=== PATIENT | female | born 1960 | race Caucasian/White ===

== ENCOUNTER → 2017-10-04 11:00 | Outpatient (CLI) | payer OTHER, SELFPAY ==
[2017-10-04 13:57] LABS: Free T4 (Free Thyroxine) 0.95 ng/dl (0.76-1.46); Thyroid Stimulating Hormone 5.76 uIU/ml (0.358-3.740)
== END ==
PROVIDERS: Visit Provider Emergency Medicine
DX: R68.89 Other general symptoms and signs (principal)
CPT/HCPCS: 84439; 84443

== ENCOUNTER → 2018-06-18 13:43 | Outpatient (CLI) | payer OTHER, SELFPAY ==
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
--- NOTE | 2018-06-18 13:48 | XR_ITS ---
XR chest 2V HISTORY: ITS.REASON: chest pain ORDERING PHYSICIAN: Thor Becerra MD PATIENT AGE: 57 years COMPARISON: None FINDINGS: The cardiac size is upper limits of normal. No evidence of CHF. Patchy density is present in the right middle lobe suggesting an area of atelectasis or infiltrate. The remaining lungs are clear. No acute bony anomalies. No effusions. IMPRESSION: Right middle lobe infiltrate versus atelectasis
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
== END ==
PROVIDERS: PCP Emergency Medicine; Visit Provider Emergency Medicine
DX: R07.9 Chest pain, unspecified (principal); M54.9 Dorsalgia, unspecified; R51 Headache; R93.0 Abnormal findings on diagnostic imaging of skull and head, not elsewhere classified; V89.2XXA Person injured in unspecified motor-vehicle accident, traffic, initial encounter
CPT/HCPCS: 70450; 71046; 72125

== ENCOUNTER → 2018-06-25 10:44 | Outpatient (CLI) | payer OTHER, SELFPAY ==
[2018-06-25 11:06] LABS: Anion Gap 12.3 mEq/L (5-15); Blood Urea Nitrogen 14 mg/dL (7-18); Calcium 8.8 mg/dL (8.5-10.1); Carbon Dioxide 29 mmol/L (21.0-32.0); Chloride 100 mmol/L (98-107); Creatinine,Serum 0.74 mg/dL (0.55-1.02); Estimated Glomerular Filt Rate 81 ml/min (>60); GFR (African American) 98 ML/MIN (>60); Glucose 95 mg/dL (74-106); Potassium 4.3 mmoL/L (3.5-5.1); Sodium 137 mmol/L (136-145)
--- NOTE | 2018-06-25 11:21 | CT_ITS ---
CT angio head INDICATION: Headache, follow up abnormal unenhanced CT head. ITS.REASON: r/o basilar tip aneurysm ORDERING PHYSICIAN: Thor Becerra MD PATIENT AGE: 57 years COMPARISON: None TECHNIQUE: Axial images are obtained following the intravenous administration of 100 mL of Isovue-370 contrast. Sagittal and coronal reformatted images are reviewed as well. All CT scans at the facility use one or more dose reduction, viz: automated exposure control, ma/kV adjustment per patient size (including targeted exams where dose is matched to indication, i.e. head), or iterative reconstruction technique. FINDINGS: There is tortuosity of the basilar artery with mild ectasia of the distal aspect of the basilar artery just proximal to the bifurcation. An aneurysm however is not demonstrated. [place] of [place] has an unremarkable appearance. No aneurysm, AVM, or major intracranial occlusive process is evident. No enhancing lesions are apparent IMPRESSION: No evidence of basilar tip aneurysm. The abnormality noted on the unenhanced exam is a result of mild ectasia and tortuosity of the distal aspect of the basilar artery.
== END ==
PROVIDERS: Visit Provider Emergency Medicine
DX: Z01.818 Encounter for other preprocedural examination (principal); R93.0 Abnormal findings on diagnostic imaging of skull and head, not elsewhere classified; V89.2XXA Person injured in unspecified motor-vehicle accident, traffic, initial encounter
CPT/HCPCS: 36415; 70496; 80048; Q9967

== ENCOUNTER → 2018-07-04 09:24 | Outpatient (CLI) | payer OTHER, SELFPAY ==
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
== END ==
PROVIDERS: PCP Emergency Medicine; Visit Provider Emergency Medicine
DX: M48.02 Spinal stenosis, cervical region (principal); M50.30 Other cervical disc degeneration, unspecified cervical region; V89.2XXA Person injured in unspecified motor-vehicle accident, traffic, initial encounter
CPT/HCPCS: 72141; 76376

== ENCOUNTER → 2019-09-29 13:54 | Outpatient (CLI) | payer MEDICAID, SELFPAY ==
[2019-09-29 14:17] LABS: Basophils # 0.1 K/mm3 (0-0.2); Basophils % 0.8 % (0.1-2.0); Eosinophils # 0.6 K/mm3 (0.0-0.4); Eosinophils % 9.1 % (0.1-12.0); Hematocrit 39.6 % (37.0-47.0); Hemoglobin 12.6 g/dL (12.2-16.2); Lymphocytes # 1.7 K/mm3 (0.7-4.5); Lymphocytes % 26.1 % (10-50); Mean Corpuscular HGB Conc 31.9 g/dL (31.8-35.4); Mean Corpuscular Hemoglobin 30.5 pg (27.0-31.2); Mean Corpuscular Volume 95.6 fl (81-99); Mean Platelet Volume 8.7 fl (7.4-10.4); Monocytes # 0.5 K/mm3 (0.1-1.0); Monocytes % 7.3 % (1.7-9.3); Neutrophils # 3.7 K/mm3 (1.8-7.8); Neutrophils % 56.6 % (37.0-80.0); Platelet Count 238 K/mm3 (142-424); Red Blood Count 4.14 M/mm3 (4.20-5.40); White Blood Count 6.4 K/mm3 (4.8-10.8)
[2019-09-29 14:21] LABS: Alanine Aminotransferase 19 U/L (12-78); Albumin/Globulin Ratio 1.2 (1.1-1.8); Alkaline Phosphatase 96 U/L (38-126); Anion Gap 13.8 mEq/L (5-15); Aspartate Amino Transferase 32 U/L (14-36); Blood Urea Nitrogen 22 mg/dl (7-17); Calcium 9.7 mg/dl (8.4-10.2); Carbon Dioxide 29 mmol/L (22.0-30.0); Chloride 101 mmol/L (98-107); Chol/HDL Ratio 2.4 (1-3.5); Cholesterol 191 mg/dl (140-200); Estimated Glomerular Filt Rate 74 ml/min (>60); GFR (African American) 89 ML/MIN (>60); Globulin 3.3 g/dL (1.3-3.2); Glucose 97 mg/dl (74-100); HDL Cholesterol 79 mg/dl (40-60); Potassium 4.8 mmoL/L (3.5-5.1); Sodium 139 mmol/L (136-145); Total Protein,Serum 7.3 g/dl (6.3-8.2); Triglycerides 53 mg/dl (30-150); VLDL Cholesterol 11 mg/dL (0-40)
[2019-09-29 14:29] LABS: Bilirubin,Total 0.1 mg/dl (0.2-1.3)
[2019-09-29 14:33] LABS: Direct LDL Cholesterol 90.29 mg/dL (100-129)
[2019-09-29 14:53] LABS: Thyroid Stimulating Hormone 3.62 uIU/mL (0.465-4.68)
[2019-09-30 16:10] LABS: Vitamin D 25 Hydroxy 34.7 ng/mL (30.0-100.0)
== END ==
PROVIDERS: Visit Provider Emergency Medicine
DX: M48.02 Spinal stenosis, cervical region (principal); E03.9 Hypothyroidism, unspecified; F41.9 Anxiety disorder, unspecified; Z72.0 Tobacco use
CPT/HCPCS: 80053; 80061; 82652; 84436; 84443; 85025

== ENCOUNTER → 2019-10-07 10:08 | Outpatient (CLI) | payer MEDICAID, SELFPAY | PROVIDERS: PCP Emergency Medicine; Visit Provider Emergency Medicine | DX: R06.02 Shortness of breath (principal) | CPT/HCPCS: 94060; 94726; 94729 ==

== ENCOUNTER → 2019-12-11 08:57 | Outpatient (CLI) | payer MEDICAID, SELFPAY ==
--- NOTE | 2019-12-11 09:12 | XR_ITS ---
PROCEDURE: XR HIP LT 2-3V W/PELVIS CLINICAL INDICATION: hip pain Left hip pain COMPARISON: XR HIP RT 2-3V W/PELVIS from 12/11/2019 FINDINGS: No fracture or dislocation is evident. No significant degenerative change. No lytic or blastic change. Unremarkable soft tissues. Incidental note made of small rounded area of calcification superior to the greater trochanter IMPRESSION: No acute findings. Dictated by: Timur Guallpa MD 12/11/2019 14:23 Electronically signed by Timur Guallpa MD in [place] 12/11/2019 14:23
--- NOTE | 2019-12-11 09:12 | XR_ITS ---
PROCEDURE: XR HIP RT 2-3V W/PELVIS CLINICAL INDICATION: hip pain COMPARISON: No exams were available for comparison FINDINGS: No fracture or dislocation is evident. No significant degenerative change. No lytic or blastic change. Unremarkable soft tissues. IMPRESSION: No acute findings. Dictated by: Timur Guallpa MD 12/11/2019 14:24 Electronically signed by Timur Guallpa MD in [place] 12/11/2019 14:24
== END ==
PROVIDERS: PCP Emergency Medicine; Visit Provider Emergency Medicine
DX: M25.552 Pain in left hip (principal); M25.551 Pain in right hip
CPT/HCPCS: 73502

== ENCOUNTER → 2019-12-16 15:12 | Outpatient (CLI) | payer MEDICAID, SELFPAY ==
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
== END ==
PROVIDERS: PCP Emergency Medicine; Visit Provider Emergency Medicine
DX: M54.9 Dorsalgia, unspecified (principal); M54.5 Low back pain
CPT/HCPCS: 72148; 76376

== ENCOUNTER → 2020-05-25 17:15 | Outpatient (CLI) | payer MEDICAID, SELFPAY ==
--- NOTE | 2020-05-25 17:16 | MM_ITS ---
PROCEDURE: MM DIG SCREENING MAMM BI W/CAD Digital Breast Tomosynthesis Included CLINICAL INDICATION: screening There is no personal or family history of breast cancer. COMPARISON: [facility] DMSB DIG MAMM-SCREEN MISSY from 04/30/2016 MG DMDB DIG MAMM-DX MISSY W/CAD from 11/07/2016 TECHNIQUE: Standard CC and MLO images and 3D Tomosynthesis was obtained. R2 CAD reviewed. FINDINGS: Scattered fibroglandular densities are seen throughout both breast. There are mole markers on each breast. There is a somewhat irregular coarse benign appearing calcification just above the nipple left breast which likely represents dystrophic calcification possibly from previous injury. There is a benign-appearing calcification right breast as well. There is no suspicious lesion in either breast and no suspicious microcalcifications. IMPRESSION: Fibrofatty parenchyma with no suspicious lesions seen BI-RAD Category: 2 Benign Finding(s) FOLLOW-UP: 1YR 1 Year Follow-up (A letter has been sent to the patient regarding results of the study.) Dictated by: Dr. Victor Manuel Chakraborty MD 05/31/2020 08:20 Dr. Victor Manuel Chakraborty MD in [place] 05/31/2020 08:20
== END ==
PROVIDERS: PCP Emergency Medicine; Visit Provider Emergency Medicine
DX: Z12.31 Encounter for screening mammogram for malignant neoplasm of breast (principal)
CPT/HCPCS: 77063; 77067

== ENCOUNTER → 2020-06-12 18:47 | Outpatient (CLI) | payer MEDICAID, SELFPAY ==
[2020-06-12 19:46] LABS: Coronavirus 19 IgG Antibody Negative (Negative); Coronavirus 19 IgM Antibody Negative (Negative)
== END ==
PROVIDERS: PCP Emergency Medicine; Visit Provider Emergency Medicine
DX: Z03.818 Encounter for observation for suspected exposure to other biological agents ruled out (principal)
CPT/HCPCS: 36415; 86328

== ENCOUNTER → 2020-06-13 20:49 | Outpatient (CLI) | payer MEDICAID, SELFPAY | PROVIDERS: PCP Emergency Medicine; Visit Provider Emergency Medicine | DX: G47.36 Sleep related hypoventilation in conditions classified elsewhere (principal); R06.83 Snoring | CPT/HCPCS: 95810 ==

== ENCOUNTER → 2020-08-03 17:25 | Outpatient (CLI) | payer MEDICAID, SELFPAY ==
--- NOTE | 2020-08-03 17:34 | XR_ITS ---
PROCEDURE: XR CHEST 2V CLINICAL HISTORY: copd Cough and congestion COMPARISON: CR CXR2V XR chest 2V from 06/18/2018 FINDINGS: The cardiomediastinal silhouette and pulmonary vascularity are within normal limits. Atelectatic changes are present in the right middle lobe region No acute bony abnormalities. IMPRESSION: Atelectatic change right middle lobe Dictated by: Timur Guallpa MD 08/04/2020 05:16 Timur Guallpa MD in [place] 08/04/2020 05:16
== END ==
PROVIDERS: PCP Emergency Medicine; Visit Provider Emergency Medicine
DX: J44.9 Chronic obstructive pulmonary disease, unspecified (principal)
CPT/HCPCS: 71046

== ENCOUNTER → 2020-08-11 08:04 | Outpatient (CLI) | payer MEDICAID, SELFPAY ==
--- NOTE | 2020-08-11 08:04 | MR_ITS ---
PROCEDURE: MR CERVICAL SPINE WO CON CLINICAL INDICATION: neck pain HX NECK SURGERY X2YRS AGO. NECK PAIN WITH INTERMITTENT BILATERAL SHOULDER PAIN. BLATERAL HAND NUMBNESS. PT HAD A HARD TIME STAYING STILL. COMPARISON: CT [facility] CT cervical spine wo con from 06/18/2018 MR [facility] MR cervical spine wo con from 07/04/2018 TECHNIQUE: Standard multiplanar multiecho sequences are performed without contrast. 3-D MIP and myelographic images are also rendered and reviewed FINDINGS: Motion artifact is present on multiple sequences despite repeating the exam. Prominent artifact is present from postsurgical changes the. There has been interval surgery compared 2 most recent exam. Unfortunately, there is no radiograph available to better identify the surgical prosthesis. Craniocervical junction is unremarkable. C2-C3: Degenerative disc disease with 3 mm anterolisthesis of C2. Postsurgical artifact posteriorly C3-C4: Degenerative disc disease with 4 mm anterolisthesis of C3. Postsurgical artifact posteriorly there is narrowing of the canal at C3-C4 at 8 mm. The canal stenosis however has shown some improvement compared to the previous exam. C4-C5: Degenerative disc disease with 4 mm anterolisthesis of C4. Previously there was approximately 6 mm anterolisthesis of C4. The canal stenosis and cord impingement has improved at this area. There is significant posterior artifact at C4-C5 C6. This is most prominent on the axial images. There has been improvement in the canal stenosis at C4-C5 C6 and C7 with prior laminectomy posteriorly at C4-C5 and C6. On the STIR images there is increased T2 signal at the C5 level of the cord. This however could even be due to artifact not readily apparent on the T2 weighted images. Anterior osteophytes are present at C4-C5 C6 and C7. There are inter pedicular screws at T1. There is mild bulging disc at T1-T2 IMPRESSION: Postsurgical changes with prior laminectomy at C4-C5 and C6 with posterior stabilizing device causing moderate degree of artifact. There has been interval improvement in the canal stenosis at multiple levels. There is residual canal stenosis at C3-C4 although improved from the previous exam. There remains reversal of the cervical lordosis with multilevel degenerative disc disease. Dictated by: Timur Guallpa MD 08/15/2020 14:08 Timur Guallpa MD in [place] 08/15/2020 14:08
== END ==
PROVIDERS: PCP Emergency Medicine; Visit Provider Emergency Medicine
DX: M50.30 Other cervical disc degeneration, unspecified cervical region (principal)
CPT/HCPCS: 72141; 76376

== ENCOUNTER → 2020-10-13 14:21 | Outpatient (CLI) | payer MEDICAID, SELFPAY ==
--- NOTE | 2020-10-13 14:38 | CT_ITS ---
PROCEDURE: CT LUNG SCREENING CLINICAL INDICATION: LDCT Current smoker 37.5 pack year smoking history copd No prior COMPARISON: No exams were available for comparison TECHNIQUE: The exam was performed on a GE Light Speed [address] scanner using 2.90 mGy CTDI. A low dose helical CT CHEST was performed on a multi-detector scanner. All CT scans at the facility use one or more dose reduction, viz: automated exposure control, ma/kV adjustment per patient size (including targeted exams where dose is matched to indication, i.e. head), or iterative reconstruction technique. The LDCT was performed in a facility that meets the criteria for the screening program. Data regarding this exam was submitted to [employer] which is an approved registry. The order for this exam indicates that it came as a result of a lung cancer screening counseling shard decision-making visit that included all the elements required of such a visit including smoking cessation. The radiologist interpreting this exam meets the [facility] criteria for the LDCT lung cancer screening program. The exam is reported using the Lung-RADS classification scale and reported to the [employer] registry. NOTE: This study was performed for the specific purposes of lung cancer screening and is not an alternative to diagnostic chest CT. RADIATION DOSE: CTDI vol(CT dose Index-volume) = 2.90mG DLP (Dose Length Product) = 96.38 mGcm FINDINGS: COPD changes with coarsening of the bronchovascular markings suggesting smoking related lung disease. 3 mm noncalcified nodule right apex. Calcified granuloma left lower lobe. No suspicious nodules apparent. Atelectatic changes are present in right middle lobe and lingula. OTHER FINDINGS: Artifact is present prior cervical spine surgery. Coronary artery calcifications are noted. Moderate amount of retained colonic feces suggesting constipation. IMPRESSION: Lung-RADS Category 2 Benign Appearance or Behavior Follow-up: Continue annual screening with LDCT in 12 months Dictated by: Timur Guallpa MD 10/14/2020 08:09 Timur Guallpa MD in [place] 10/14/2020 08:09
== END ==
PROVIDERS: PCP Emergency Medicine; Visit Provider Internal Medicine Pulmonary Disease
DX: Z87.891 Personal history of nicotine dependence (principal); Z12.2 Encounter for screening for malignant neoplasm of respiratory organs; R06.00 Dyspnea, unspecified
CPT/HCPCS: 71271; 94060; 94618; 94726; 94729

== ENCOUNTER → 2021-05-02 12:54 | Outpatient (CLI) | payer MEDICAID, SELFPAY ==
--- NOTE | 2021-05-02 12:56 | CA_ITS ---
APPROVED REPORT Right Lower Extremity Venous Study for DVT. Financial Sales Assistant: CT Indications Lower Extremity Pain: Right Lower Extremity Edema: Right Current Smoker r/o DVT, Vein Imaging CFV (R): compressive, spontaneous, phasic, augmentation SFJ (R): compressive, spontaneous, phasic, augmentation FEM (R): compressive, spontaneous, phasic, augmentation POP (R): compressive, spontaneous, phasic, augmentation DFV (R): compressive, spontaneous, phasic, augmentation PTV (R): compressive, spontaneous, phasic, augmentation GSV (R): compressive, spontaneous, phasic, augmentation SSV (R): compressive, spontaneous, phasic, augmentation Peroneals (R):compressive, spontaneous, phasic, augmentation GAS (R): compressive, spontaneous, phasic, augmentation Findings RLE negative for DVT/SVT. Vessles fully compressible. Interstitial edema noted in the RLE. Conclusion RLE negative for DVT/SVT. Vessles fully compressible. Interstitial edema noted in the RLE. Electronically signed by : Timur Guallpa MD 05/03/2021 18:24:50
--- NOTE | 2021-05-02 13:35 | XR_ITS ---
PROCEDURE: XR KNEE RT 3V CLINICAL INDICATION: Knee Pain COMPARISON: No exams were available for comparison FINDINGS: No fracture or dislocation. No lytic or blastic change. There is normal mineralization. There are moderate osteoarthritic changes of the medial compartment. Subchondral lucency with sclerotic margin is present along the articular surface of the medial femoral condyle measuring approximately 10 mm. Mild osteoarthritic changes are present at the lateral compartment and patellofemoral joint with suspected small suprapatellar effusion. Other findings:None. IMPRESSION: Osteoarthritic changes as described above with small knee joint effusion. Subchondral lucency with sclerotic margin the medial femoral condyle which may represent an osteochondral defect/sequela from osteochondrosis. Follow-up is suggested as an enchondroma would be included in the differential diagnosis. Dictated by: Timur Guallpa MD 05/02/2021 14:22 Timur Guallpa MD in [place] 05/02/2021 14:22
== END ==
PROVIDERS: PCP Emergency Medicine; Visit Provider Emergency Medicine
DX: M79.604 Pain in right leg (principal); M79.89 Other specified soft tissue disorders; M25.561 Pain in right knee
CPT/HCPCS: 73562; 93971

== ENCOUNTER → 2022-05-30 14:10 | Outpatient (CLI) | payer MEDICARE, MEDICAID, SELFPAY ==
[2022-05-30 18:28] LABS: Amphetamine/Metha Screen,Urine Positive ng/ml (<1000); Barbiturates Screen,Urine Negative ng/ml (<200)
[2022-05-30 18:29] LABS: Benzodiazepines Screen,Urine Negative ng/ml (<200); Cannabinoid Screen,Urine Negative ng/ml (<50)
[2022-05-30 18:30] LABS: Cocaine Screen,Urine Positive ng/ml (<300)
[2022-05-30 18:32] LABS: Methadone Screen,Urine Negative ng/ml (<300)
[2022-05-30 18:33] LABS: Opiate Screen,Urine Negative ng/ml (<300); Phencyclidine Screen,Urine Negative ng/ml (<25)
== END ==
PROVIDERS: PCP Emergency Medicine; Visit Provider Emergency Medicine
DX: Z79.899 Other long term (current) drug therapy (principal)
CPT/HCPCS: 80305

== ENCOUNTER → 2022-06-25 15:20 | Outpatient (CLI) | payer MEDICARE, MEDICAID, SELFPAY ==
[2022-06-25 19:28] LABS: Amphetamine/Metha Screen,Urine Negative ng/ml (<1000); Barbiturates Screen,Urine Negative ng/ml (<200)
[2022-06-25 19:29] LABS: Benzodiazepines Screen,Urine Negative ng/ml (<200)
[2022-06-25 19:30] LABS: Cannabinoid Screen,Urine Negative ng/ml (<50); Cocaine Screen,Urine Negative ng/ml (<300)
[2022-06-25 19:31] LABS: Methadone Screen,Urine Negative ng/ml (<300)
[2022-06-25 19:32] LABS: Opiate Screen,Urine Negative ng/ml (<300)
[2022-06-25 19:33] LABS: Phencyclidine Screen,Urine Negative ng/ml (<25)
== END ==
PROVIDERS: PCP Emergency Medicine; Visit Provider Emergency Medicine
DX: Z79.899 Other long term (current) drug therapy (principal)
CPT/HCPCS: 80305

== ENCOUNTER → 2022-09-19 16:30 | Outpatient (CLI) | payer MEDICARE, MEDICAID, SELFPAY ==
[2022-09-19 15:10] LABS: Basophils # 0.1 K/mm3 (0-0.2); Basophils % 0.8 % (0.1-2.0); Eosinophils # 0.9 K/mm3 (0.0-0.4); Eosinophils % 11.7 % (0.1-12.0); Hematocrit 38.6 % (37.0-47.0); Hemoglobin 12.2 g/dL (12.2-16.2); Lymphocytes # 1.9 K/mm3 (0.7-4.5); Lymphocytes % 26.7 % (10-50); Mean Corpuscular HGB Conc 31.5 g/dL (31.8-35.4); Mean Corpuscular Hemoglobin 30.3 pg (27.0-31.2); Mean Corpuscular Volume 96.2 fl (81-99); Mean Platelet Volume 9.5 fl (7.4-10.4); Monocytes # 0.5 K/mm3 (0.1-1.0); Monocytes % 7.2 % (1.7-9.3); Neutrophils # 3.9 K/mm3 (1.8-7.8); Neutrophils % 53.6 % (37.0-80.0); Platelet Count 259 K/mm3 (142-424); Red Blood Count 4.01 M/mm3 (4.20-5.40); Red Cell Distribution Width 13.2 % (11.5-17.5); White Blood Count 7.3 K/mm3 (4.8-10.8)
[2022-09-19 15:17] LABS: Alanine Aminotransferase 24 U/L (12-78); Albumin Level 4.1 g/dl (3.5-5.0); Albumin/Globulin Ratio 1.4 (1.1-1.8); Alkaline Phosphatase 125 U/L (38-126); Anion Gap 10.3 mEq/L (5-15); Aspartate Amino Transferase 30 U/L (14-36); Bilirubin,Total 0.3 mg/dl (0.2-1.3); Blood Urea Nitrogen 18 mg/dl (7-17); Calcium 9.3 mg/dl (8.4-10.2); Carbon Dioxide 29 mmol/L (22.0-30.0); Chloride 104 mmol/L (98-107); Chol/HDL Ratio 2.9 (1-3.5); Cholesterol 171 mg/dl (140-200); Estimated Glomerular Filt Rate 64 ml/min (>60); GFR (African American) 77 ML/MIN (>60); Glucose 93 mg/dl (74-100); HDL Cholesterol 59 mg/dl (40-60); Potassium 4.3 mmoL/L (3.5-5.1); Sodium 139 mmol/L (136-145); Total Protein,Serum 7.1 g/dl (6.3-8.2); Triglycerides 87 mg/dl (30-150); VLDL Cholesterol 17 mg/dL (0-40)
[2022-09-19 15:31] LABS: Free T4 (Free Thyroxine) 1.02 ng/dl (0.78-2.19)
[2022-09-19 15:34] LABS: 25-OH Vitamin D, Total 45.6 ng/mL (30-100)
[2022-09-19 15:35] LABS: Direct LDL Cholesterol 76.82 mg/dL (100-129)
== END ==
PROVIDERS: PCP Emergency Medicine; Visit Provider Emergency Medicine
DX: E03.9 Hypothyroidism, unspecified (principal); R53.83 Other fatigue; E55.9 Vitamin D deficiency, unspecified
CPT/HCPCS: 80053; 80061; 82306; 84439; 84443; 85025

== ENCOUNTER → 2022-10-08 11:11 | Outpatient (CLI) | payer MEDICARE, MEDICAID, SELFPAY ==
[2022-10-08 19:16] LABS: Barbiturates Screen,Urine Negative ng/ml (<200)
[2022-10-08 19:17] LABS: Benzodiazepines Screen,Urine Negative ng/ml (<200); Cannabinoid Screen,Urine Negative ng/ml (<50)
[2022-10-08 19:18] LABS: Cocaine Screen,Urine Negative ng/ml (<300)
[2022-10-08 19:19] LABS: Methadone Screen,Urine Negative ng/ml (<300); Opiate Screen,Urine Negative ng/ml (<300)
[2022-10-08 19:20] LABS: Phencyclidine Screen,Urine Negative ng/ml (<25)
[2022-10-08 19:28] LABS: Amphetamine/Metha Screen,Urine Negative ng/ml (<1000)
== END ==
PROVIDERS: PCP Emergency Medicine; Visit Provider Emergency Medicine
DX: Z79.899 Other long term (current) drug therapy (principal)
CPT/HCPCS: 80305

== ENCOUNTER → 2022-10-08 23:24 | Outpatient (CLI) | payer MEDICARE, MEDICAID, SELFPAY | PROVIDERS: PCP Emergency Medicine; Visit Provider Emergency Medicine | DX: Z79.899 Other long term (current) drug therapy (principal) ==

== ENCOUNTER → 2022-11-14 14:35 | Outpatient (CLI) | payer MEDICARE, MEDICAID, SELFPAY ==
[2022-11-14 19:26] LABS: Amphetamine/Metha Screen,Urine Negative ng/ml (<1000); Barbiturates Screen,Urine Negative ng/ml (<200)
[2022-11-14 19:27] LABS: Benzodiazepines Screen,Urine Negative ng/ml (<200)
[2022-11-14 19:28] LABS: Cannabinoid Screen,Urine Positive ng/ml (<50); Cocaine Screen,Urine Negative ng/ml (<300)
[2022-11-14 19:29] LABS: Methadone Screen,Urine Negative ng/ml (<300); Opiate Screen,Urine Negative ng/ml (<300)
[2022-11-14 19:30] LABS: Phencyclidine Screen,Urine Negative ng/ml (<25)
== END ==
PROVIDERS: PCP Emergency Medicine; Visit Provider Emergency Medicine
DX: Z79.899 Other long term (current) drug therapy (principal)
CPT/HCPCS: 80305

== ENCOUNTER → 2023-02-27 14:24 | Outpatient (CLI) | payer MEDICARE, MEDICAID, SELFPAY ==
[2023-02-27 13:44] LABS: Amphetamine/Metha Screen,Urine Positive ng/ml (<1000); Barbiturates Screen,Urine Negative ng/ml (<200); Benzodiazepines Screen,Urine Negative ng/ml (<200); Cannabinoid Screen,Urine Negative ng/ml (<50); Cocaine Screen,Urine Positive ng/ml (<300); Opiate Screen,Urine Negative ng/ml (<300); Phencyclidine Screen,Urine Negative ng/ml (<25)
[2023-02-27 16:55] LABS: Methadone Screen,Urine Negative ng/ml (<300)
== END ==
PROVIDERS: PCP Emergency Medicine; Visit Provider Emergency Medicine
DX: Z79.899 Other long term (current) drug therapy (principal)
CPT/HCPCS: 80305

== ENCOUNTER → 2023-03-26 19:23 | Outpatient (CLI) | payer MEDICARE, MEDICAID, SELFPAY ==
[2023-03-26 20:35] LABS: Benzodiazepines Screen,Urine Negative ng/ml (<200)
[2023-03-26 20:36] LABS: Amphetamine/Metha Screen,Urine Positive ng/ml (<1000)
[2023-03-26 20:37] LABS: Barbiturates Screen,Urine Negative ng/ml (<200); Methadone Screen,Urine Negative ng/ml (<300)
[2023-03-26 20:38] LABS: Cannabinoid Screen,Urine Negative ng/ml (<50); Cocaine Screen,Urine Negative ng/ml (<300)
[2023-03-26 20:39] LABS: Opiate Screen,Urine Negative ng/ml (<300)
[2023-03-26 20:40] LABS: Phencyclidine Screen,Urine Negative ng/ml (<25)
== END ==
PROVIDERS: PCP Emergency Medicine; Visit Provider Emergency Medicine
DX: Z79.899 Other long term (current) drug therapy (principal)
CPT/HCPCS: 80305

== ENCOUNTER → 2023-05-24 14:50 | Outpatient (CLI) | payer MEDICARE, SELFPAY ==
[2023-05-24 18:49] LABS: Barbiturates Screen,Urine Negative ng/ml (<200)
[2023-05-24 18:51] LABS: Benzodiazepines Screen,Urine Negative ng/ml (<200)
[2023-05-24 18:52] LABS: Cannabinoid Screen,Urine Positive ng/ml (<50)
[2023-05-24 18:53] LABS: Cocaine Screen,Urine Negative ng/ml (<300); Methadone Screen,Urine Negative ng/ml (<300)
[2023-05-24 18:54] LABS: Opiate Screen,Urine Negative ng/ml (<300); Phencyclidine Screen,Urine Negative ng/ml (<25)
[2023-05-24 19:04] LABS: Amphetamine/Metha Screen,Urine Positive ng/ml (<1000)
== END ==
PROVIDERS: PCP Emergency Medicine; Visit Provider Emergency Medicine
DX: Z79.899 Other long term (current) drug therapy (principal)
CPT/HCPCS: 80305

== ENCOUNTER → 2023-07-18 22:17 | Outpatient (CLI) | payer MEDICARE, SELFPAY ==
[2023-07-18 18:25] LABS: Amphetamine/Metha Screen,Urine Positive ng/ml (<1000); Barbiturates Screen,Urine Negative ng/ml (<200); Benzodiazepines Screen,Urine Negative ng/ml (<200)
[2023-07-18 18:27] LABS: Cannabinoid Screen,Urine Negative ng/ml (<50); Cocaine Screen,Urine Negative ng/ml (<300); Methadone Screen,Urine Negative ng/ml (<300)
[2023-07-18 18:28] LABS: Opiate Screen,Urine Negative ng/ml (<300)
[2023-07-18 18:29] LABS: Phencyclidine Screen,Urine Negative ng/ml (<25)
== END ==
PROVIDERS: PCP Internal Medicine; Visit Provider Internal Medicine
DX: Z79.899 Other long term (current) drug therapy (principal)
CPT/HCPCS: 80307